=== PATIENT | female | born 1950 | race Caucasian/White ===

== ENCOUNTER 2019-03-24 08:57 | Emergency (ER) | payer MEDICARE, MEDICAID ==
[~2019-03-24] VITALS: Ht 157.5 cm; Wt 62.0 kg
[2019-03-24 09:01] VITALS: BP 170/77
== END 2019-03-24 09:48 | disposition home or self-care (01) ==
LOC: ER 08:58
DX: S60.445A External constriction of left ring finger, initial encounter (principal); X58.XXXA Exposure to other specified factors, initial encounter; Y93.89 Activity, other specified; Y92.89 Other specified places as the place of occurrence of the external cause; Y99.9 Unspecified external cause status
CPT/HCPCS: 99284

== ENCOUNTER 2024-01-01 01:23 | Emergency (ER) | payer MEDICARE, MEDICAID ==
[~2024-01-01] VITALS: Ht 154.9 cm; Wt 62.3 kg
[~2024-01-01 01:23] MED LIST: ASPI81TA52 PO; LOSA50TA64 PO; ROSU10TA72 PO
[2024-01-01 01:42] LABS: HEMOGLOBIN 14.2 g/dl (12.0-16.0)
[2024-01-01 01:44] LABS: BASOPHILS # (AUTO) 0.1 X10'3 (0-0.2); BASOPHILS % (AUTO) 1.1 % (0-1); EOSINOPHILS # (AUTO) 0.1 X10'3 (0-0.9); HEMATOCRIT 43.3 % (35.0-45.0); LYMPHOCYTES # (AUTO) 3.3 X10'3 (1.1-4.8); LYMPHOCYTES % (AUTO) 44.3 % (21-51); MEAN CORPUSCULAR HEMOGLOBIN 30.1 PG (27.0-31.0); MEAN CORPUSCULAR HGB CONC 32.8 g/dL (33.0-36.5); MEAN PLATELET VOLUME 9.7 FL (7.4-10.4); MONOCYTES # (AUTO) 0.5 X10'3 (0-0.9); MONOCYTES % (AUTO) 7.1 % (2-12); NEUTROPHILS # (AUTO) 3.4 X10'3 (1.8-7.7); NEUTROPHILS % (AUTO) 46.5 % (42-75); PLATELET COUNT 215 X10'3 (140-440); RED BLOOD COUNT 4.71 X10'6 (4.20-5.60); RED CELL DISTRIBUTION WIDTH 14.6 % (11.5-14.5); WHITE BLOOD COUNT 7.4 X10'3 (4.5-11.0)
[2024-01-01 01:57] LABS: ALANINE AMINOTRANSFERASE 23 U/L (12-78); ALBUMIN 4.2 G/DL (3.4-5.0); ALBUMIN/GLOBULIN RATIO 1.1 (1.1-1.5); ALKALINE PHOSPHATASE 102 IU/L (46-116); ANION GAP 9 (8-16); ASPARTATE AMINO TRANSFERASE 20 U/L (10-37); BILIRUBIN,TOTAL 0.4 MG/DL (0.1-1.0); BLOOD UREA NITROGEN 10 MG/DL (7-18); BUN/CREATININE RATIO 11.1 (10.0-20.0); CALCIUM 9.4 MG/DL (8.5-10.1); CHLORIDE 101 MMOL/L (99-107); GLUCOSE 106 MG/DL (70-104); POTASSIUM 3.5 MMOL/L (3.5-5.1); SODIUM 136 MMOL/L (135-145); TOTAL CARBON DIOXIDE 25.8 MMOL/L (24-32); TOTAL PROTEIN 8.2 G/DL (6.4-8.2); eCRCL 42 ML/MIN; eGFR 61 ML/MIN
[2024-01-01 02:04] LABS: PRO BRAIN NATRIURETIC PEPTIDE 122 PG/ML (0-125)
[2024-01-01 03:37] VITALS: TEMP 98.2
[2024-01-01] MEDS: amLODIPine 5mg tablet PO ONE (05:18)
[2024-01-01 05:28] VITALS: BP 180/82; PULSE 50; RESP 12; O2SAT 99
== END 2024-01-01 05:27 | disposition home or self-care (01) ==
LOC: ER 01:24
DX: I10 Essential (primary) hypertension (principal); R00.1 Bradycardia, unspecified; R00.2 Palpitations; Z79.82 Long term (current) use of aspirin; Z79.899 Other long term (current) drug therapy
CPT/HCPCS: 36415; 71045; 80053; 83880; 84484; 85025; 93005; 99285

== ENCOUNTER 2024-01-17 22:19 | Inpatient (IN) | payer MEDICARE, MEDICAID ==
[~2024-01-17] VITALS: Ht 154.9 cm; Wt 59.1 kg
[2024-01-17 22:56] LABS: ALANINE AMINOTRANSFERASE 25 U/L (12-78); ALBUMIN 4.1 G/DL (3.4-5.0); ALBUMIN/GLOBULIN RATIO 1.1 (1.1-1.5); ALKALINE PHOSPHATASE 89 IU/L (46-116); ANION GAP 9 (8-16); ASPARTATE AMINO TRANSFERASE 26 U/L (10-37); BILIRUBIN,TOTAL 0.7 MG/DL (0.1-1.0); BLOOD UREA NITROGEN 6 MG/DL (7-18); BUN/CREATININE RATIO 7.4 (10.0-20.0); CHLORIDE 88 MMOL/L (99-107); CREATININE 0.81 MG/DL (0.40-0.90); GLUCOSE 99 MG/DL (70-104); POTASSIUM 3.5 MMOL/L (3.5-5.1); SODIUM 122 MMOL/L (135-145); TOTAL CARBON DIOXIDE 24.6 MMOL/L (24-32); TOTAL PROTEIN 7.8 G/DL (6.4-8.2); eCRCL 47 ML/MIN; eGFR 69 ML/MIN
[2024-01-17 22:59] LABS: BASOPHILS # (AUTO) 0.1 X10'3 (0-0.2); BASOPHILS % (AUTO) 0.9 % (0-1); EOSINOPHILS # (AUTO) 0.1 X10'3 (0-0.9); EOSINOPHILS % (AUTO) 2.3 % (0-6); HEMATOCRIT 40.2 % (35.0-45.0); HEMOGLOBIN 13.7 g/dl (12.0-16.0); LYMPHOCYTES # (AUTO) 2.5 X10'3 (1.1-4.8); LYMPHOCYTES % (AUTO) 39.7 % (21-51); MEAN CORPUSCULAR HEMOGLOBIN 30.8 PG (27.0-31.0); MEAN CORPUSCULAR VOLUME 90.6 FL (78-98); MEAN PLATELET VOLUME 9.2 FL (7.4-10.4); MONOCYTES # (AUTO) 0.5 X10'3 (0-0.9); NEUTROPHILS # (AUTO) 3.1 X10'3 (1.8-7.7); NEUTROPHILS % (AUTO) 49.1 % (42-75); PLATELET COUNT 248 X10'3 (140-440); RED BLOOD COUNT 4.43 X10'6 (4.20-5.60); RED CELL DISTRIBUTION WIDTH 13.9 % (11.5-14.5); WHITE BLOOD COUNT 6.3 X10'3 (4.5-11.0)
[2024-01-17 23:04] LABS: PRO BRAIN NATRIURETIC PEPTIDE 260 PG/ML (0-125)
[2024-01-17] MEDS ORDERED: LOSA-415 PO (23:28)
[2024-01-17] MEDS ORDERED: ASPI-1397 PO (23:28)
[2024-01-17] MEDS ORDERED: ROSU10TA72 PO (23:28)
[2024-01-17] MEDS: normal saline 1000ml 1,000 ML IV ONE (23:44)
[2024-01-18] VITALS (8 sets, daily range): BP systolic 111–134; BP diastolic 52–68; PULSE 62–85; RESP 16–25; TEMP 97.5–97.8; O2SAT 97–98
[2024-01-18] MEDS ORDERED: ondansetron/PF 4mg/2ml inj IV PRN (01:00)
[2024-01-18] MEDS ORDERED: magnesium Cl slow-release 64mg tablet PO PRN (01:00)
[2024-01-18] MEDS ORDERED: acetaminophen 325mg tablet PO PRN (01:00)
[2024-01-18] MEDS ORDERED: magnesium hydroxide 30ml (MOM) UD suspension PO PRN (01:00)
[2024-01-18] MEDS ORDERED: potassium Cl 20 mEq SR tablet PO PRN (01:00)
[2024-01-18] MEDS ORDERED: magnesium sulf-water 4G/100mL 100 ML IV PRN (01:00)
[2024-01-18] MEDS ORDERED: mag hydrox/Alum hydrox/simeth 30ml oral suspension PO PRN (01:00)
[2024-01-18] MEDS ORDERED: magnesium sulf-water 2g/50mL 50 ML IV PRN (01:00)
[2024-01-18] MEDS ORDERED: potassium Cl 40MEQ/1/2NS 520ml 520 ML IV PRN (01:00)
[2024-01-18] MEDS ORDERED: hydrALAZINE 20mg/ml inj. IV PRN (01:10)
[2024-01-18 01:39] LABS: THYROID STIMULATING HORMONE 2.43 ulU/ml (0.34-4.50)
[2024-01-18] MEDS: hydrALAZINE 20mg/ml inj. IV ONE (03:00)
[2024-01-18] MEDS: normal saline 1000ml 1,000 ML IV SCH (03:07)
[2024-01-18] MEDS: losartan 50mg tablet PO ONE (03:09)
[2024-01-18 06:12] LABS: ALBUMIN 3.5 G/DL (3.4-5.0); ANION GAP 9 (8-16); BLOOD UREA NITROGEN 4 MG/DL (7-18); BUN/CREATININE RATIO 5.1 (10.0-20.0); CALCIUM 8.4 MG/DL (8.5-10.1); CHLORIDE 97 MMOL/L (99-107); CREATININE 0.79 MG/DL (0.40-0.90); GLUCOSE 95 MG/DL (70-104); POTASSIUM 3.8 MMOL/L (3.5-5.1); SODIUM 130 MMOL/L (135-145); TOTAL CARBON DIOXIDE 24.3 MMOL/L (24-32); eCRCL 48 ML/MIN; eGFR 71 ML/MIN
[2024-01-18] MEDS: K and/or MAG REPLACEMENT MC SCH (06:38)
[2024-01-18 06:46] LABS: OSMOLALITY 273 MOSM/K (280-300)
[2024-01-18] MEDS: aspirin 81mg, enteric-coated 1 TAB TABLET.DR PO SCH (07:19)
[2024-01-18] MEDS: losartan 50mg tablet PO SCH (07:21)
[2024-01-18] MEDS: ROSUVASTATIN CALCIUM 5 MG TABLET PO SCH (07:21)
[2024-01-18] MEDS: docusate sod 100mg capsule PO SCH (07:26)
[2024-01-18] MEDS: heparin, porcine 5000 units/ml vial SQ SCH (07:26)
[2024-01-18] MEDS ORDERED: sodium chloride 1gm tablet PO SCH (08:00)
[2024-01-18] MEDS ORDERED: losartan 50mg tablet PO SCH (08:00)
[2024-01-18] MEDS: UREA 15GM/PACKET 15 GM POWD.PACK PO SCH (09:07)
[2024-01-19] VITALS (8 sets, daily range): BP systolic 100–149; BP diastolic 48–71; PULSE 51–64; RESP 14–18; TEMP 97.5–98.6; O2SAT 97–100
[2024-01-19 08:08] LABS: BASOPHILS % (AUTO) 0.6 % (0-1); EOSINOPHILS # (AUTO) 0.1 X10'3 (0-0.9); EOSINOPHILS % (AUTO) 0.7 % (0-6); HEMATOCRIT 34.6 % (35.0-45.0); HEMOGLOBIN 11.7 g/dl (12.0-16.0); LYMPHOCYTES # (AUTO) 0.9 X10'3 (1.1-4.8); LYMPHOCYTES % (AUTO) 11.2 % (21-51); MEAN CORPUSCULAR HEMOGLOBIN 30.6 PG (27.0-31.0); MEAN CORPUSCULAR HGB CONC 33.9 g/dL (33.0-36.5); MEAN CORPUSCULAR VOLUME 90.3 FL (78-98); MEAN PLATELET VOLUME 9.3 FL (7.4-10.4); MONOCYTES # (AUTO) 0.6 X10'3 (0-0.9); MONOCYTES % (AUTO) 6.8 % (2-12); NEUTROPHILS # (AUTO) 6.6 X10'3 (1.8-7.7); NEUTROPHILS % (AUTO) 80.7 % (42-75); PLATELET COUNT 223 X10'3 (140-440); RED BLOOD COUNT 3.83 X10'6 (4.20-5.60); RED CELL DISTRIBUTION WIDTH 14.1 % (11.5-14.5); WHITE BLOOD COUNT 8.2 X10'3 (4.5-11.0)
[2024-01-19 08:41] LABS: ALANINE AMINOTRANSFERASE 22 U/L (12-78); ALBUMIN/GLOBULIN RATIO 0.9 (1.1-1.5); ALKALINE PHOSPHATASE 61 IU/L (46-116); ANION GAP 7 (8-16); ASPARTATE AMINO TRANSFERASE 18 U/L (10-37); BILIRUBIN,TOTAL 0.5 MG/DL (0.1-1.0); BLOOD UREA NITROGEN 10 MG/DL (7-18); BUN/CREATININE RATIO 12.2 (10.0-20.0); CALCIUM 8.3 MG/DL (8.5-10.1); CHLORIDE 98 MMOL/L (99-107); CHOL/HDL RATIO 1.4 (0.00-4.99); CHOLESTEROL 65 MG/DL (0-200); CREATININE 0.82 MG/DL (0.40-0.90); GLUCOSE 101 MG/DL (70-104); HDL CHOLESTEROL 47 MG/DL (35-60); LDL CHOLESTEROL 21 MG/DL (50-100); POTASSIUM 3.4 MMOL/L (3.5-5.1); SODIUM 130 MMOL/L (135-145); TOTAL CARBON DIOXIDE 25.5 MMOL/L (24-32); TOTAL PROTEIN 6.3 G/DL (6.4-8.2); TRIGLYCERIDES 20 MG/DL (20-135); eCRCL 46 ML/MIN; eGFR 68 ML/MIN
[2024-01-19] MEDS: potassium Cl 20 mEq SR tablet PO PRN (10:27)
[2024-01-19 23:38] LABS: BILIRUBIN,URINE NEGATIVE (Neg); CLARITY,URINE CLEAR (Clear); COLOR,URINE YELLOW (Yellow); GLUCOSE, URINE NEGATIVE (Neg); KETONES,URINE NEGATIVE (Neg); LEUKOCYTE ESTERASE ,URINE SMALL (Neg); NITRITES, URINE NEGATIVE (Neg); OCCULT BLOOD,URINE SMALL (Neg); PH,URINE 6.5 (4.8-8.0); PROTEIN,URINE NEGATIVE (Neg); UROBILINOGEN,URINE 0.2 E.U/dL (0.2-1.0)
[2024-01-19 23:43] LABS: UA COLLECTION TYPE CLN CATCH MIDSTREAM
[2024-01-19 23:46] LABS: BACTERIA,URINE 1+ /HPF (Neg); MUCUS STRANDS NONE SEEN /LPF (Neg); RBC,URINE 0-2 /HPF (0-2); SQUAMOUS EPITHELIAL CELL,UR FEW /LPF (FEW)
[2024-01-19 23:47] LABS: RENAL CELLS, URINE FEW /HPF
[2024-01-20 06:00] VITALS: BP 119/55; PULSE 56; RESP 17; TEMP 97.6; O2SAT 97
[2024-01-20] MEDS: losartan 50mg tablet PO SCH (07:35)
[2024-01-20 07:58] LABS: BASOPHILS # (AUTO) 0.1 X10'3 (0-0.2); BASOPHILS % (AUTO) 1.1 % (0-1); EOSINOPHILS # (AUTO) 0.2 X10'3 (0-0.9); EOSINOPHILS % (AUTO) 2.7 % (0-6); HEMATOCRIT 36.2 % (35.0-45.0); HEMOGLOBIN 11.9 g/dl (12.0-16.0); LYMPHOCYTES # (AUTO) 1.3 X10'3 (1.1-4.8); LYMPHOCYTES % (AUTO) 20.9 % (21-51); MEAN CORPUSCULAR HEMOGLOBIN 29.7 PG (27.0-31.0); MEAN CORPUSCULAR HGB CONC 32.8 g/dL (33.0-36.5); MEAN CORPUSCULAR VOLUME 90.5 FL (78-98); MEAN PLATELET VOLUME 9.1 FL (7.4-10.4); MONOCYTES # (AUTO) 0.5 X10'3 (0-0.9); MONOCYTES % (AUTO) 8.4 % (2-12); NEUTROPHILS % (AUTO) 66.9 % (42-75); PLATELET COUNT 226 X10'3 (140-440); RED CELL DISTRIBUTION WIDTH 14.2 % (11.5-14.5)
[2024-01-20 08:00] VITALS: BP_SYST 119; BP_SYST 132; BP_SYST 138; BP_DIAS 55; BP_DIAS 56; BP_DIAS 62; PULSE 52; PULSE 56; RESP 17; O2SAT 97
[2024-01-20 08:20] LABS: ALANINE AMINOTRANSFERASE 24 U/L (12-78); ALBUMIN 3.1 G/DL (3.4-5.0); ALBUMIN/GLOBULIN RATIO 0.9 (1.1-1.5); ALKALINE PHOSPHATASE 61 IU/L (46-116); ANION GAP 7 (8-16); ASPARTATE AMINO TRANSFERASE 20 U/L (10-37); BILIRUBIN,TOTAL 0.5 MG/DL (0.1-1.0); BLOOD UREA NITROGEN 12 MG/DL (7-18); BUN/CREATININE RATIO 14.6 (10.0-20.0); CALCIUM 8.5 MG/DL (8.5-10.1); CHLORIDE 102 MMOL/L (99-107); CREATININE 0.82 MG/DL (0.40-0.90); GLUCOSE 98 MG/DL (70-104); POTASSIUM 4.1 MMOL/L (3.5-5.1); SODIUM 134 MMOL/L (135-145); TOTAL CARBON DIOXIDE 25.5 MMOL/L (24-32); TOTAL PROTEIN 6.5 G/DL (6.4-8.2); eCRCL 46 ML/MIN; eGFR 68 ML/MIN
[2024-01-20] MEDS ORDERED: LOSA50TA64 PO (09:23)
[2024-01-20 11:00] VITALS: BP 123/65; PULSE 56; RESP 18; TEMP 97.6; O2SAT 96
== END 2024-01-20 11:47 | disposition home or self-care (01) | DRG 309 ==
LOC: ER 22:20 → ED HOLD 01-18 00:01 → PCU 3S 01-18 11:57
PROVIDERS: ADMIT Internal Medicine Critical Care Medicine; ATTEND Internal Medicine
DX: I49.5 Sick sinus syndrome (principal); E87.1 Hypo-osmolality and hyponatremia; I16.0 Hypertensive urgency; Z66 Do not resuscitate; I10 Essential (primary) hypertension; Z79.82 Long term (current) use of aspirin; Z79.899 Other long term (current) drug therapy; Z90.710 Acquired absence of both cervix and uterus
CPT/HCPCS: 36415; 71045; 80048; 80053; 80061; 81001; 82570; 83735; 83880; 83930; 83935; 84295; 84300; 84443; 84484; 85025; 87081; 87088; 93005; 97161; 97530; 99285; G0378; J0360; J7030

== ENCOUNTER 2024-01-24 20:14 | Emergency (ER) | payer MEDICARE, MEDICAID ==
[~2024-01-24] VITALS: Ht 154.9 cm; Wt 62.3 kg
[~2024-01-24 20:14] MED LIST changes: +ASPI-1397 PO; -ASPI81TA52 PO
[2024-01-24 20:28] VITALS: TEMP 98
[2024-01-24 20:59] LABS: BASOPHILS # (AUTO) 0.1 X10'3 (0-0.2); BASOPHILS % (AUTO) 1.1 % (0-1); EOSINOPHILS # (AUTO) 0.1 X10'3 (0-0.9); EOSINOPHILS % (AUTO) 0.7 % (0-6); HEMATOCRIT 38.1 % (35.0-45.0); HEMOGLOBIN 12.5 g/dl (12.0-16.0); LYMPHOCYTES # (AUTO) 1.9 X10'3 (1.1-4.8); LYMPHOCYTES % (AUTO) 24.4 % (21-51); MEAN CORPUSCULAR HGB CONC 32.8 g/dL (33.0-36.5); MEAN CORPUSCULAR VOLUME 91.3 FL (78-98); MEAN PLATELET VOLUME 8.4 FL (7.4-10.4); MONOCYTES # (AUTO) 0.6 X10'3 (0-0.9); MONOCYTES % (AUTO) 8.2 % (2-12); NEUTROPHILS % (AUTO) 65.6 % (42-75); PLATELET COUNT 279 X10'3 (140-440); RED BLOOD COUNT 4.17 X10'6 (4.20-5.60); RED CELL DISTRIBUTION WIDTH 14.2 % (11.5-14.5); WHITE BLOOD COUNT 7.6 X10'3 (4.5-11.0)
[2024-01-24 21:10] LABS: ALANINE AMINOTRANSFERASE 23 U/L (12-78); ALBUMIN 3.7 G/DL (3.4-5.0); ALBUMIN/GLOBULIN RATIO 0.9 (1.1-1.5); ALKALINE PHOSPHATASE 81 IU/L (46-116); ANION GAP 10 (8-16); ASPARTATE AMINO TRANSFERASE 20 U/L (10-37); BILIRUBIN,TOTAL 0.3 MG/DL (0.1-1.0); BLOOD UREA NITROGEN 12 MG/DL (7-18); BUN/CREATININE RATIO 13.6 (10.0-20.0); CHLORIDE 103 MMOL/L (99-107); CREATININE 0.88 MG/DL (0.40-0.90); GLUCOSE 127 MG/DL (70-104); SODIUM 140 MMOL/L (135-145); TOTAL PROTEIN 7.8 G/DL (6.4-8.2); eCRCL 43 ML/MIN; eGFR 63 ML/MIN
[2024-01-24 21:18] LABS: PRO BRAIN NATRIURETIC PEPTIDE 222 PG/ML (0-125)
[2024-01-24 23:40] VITALS: BP 173/72; PULSE 54; RESP 18; O2SAT 100
== END 2024-01-24 23:43 | disposition home or self-care (01) ==
LOC: ER 20:14
DX: I10 Essential (primary) hypertension (principal); Z88.6 Allergy status to analgesic agent; Z83.3 Family history of diabetes mellitus
CPT/HCPCS: 36415; 71045; 80053; 83880; 84484; 85025; 93005; 99285